=== PATIENT | male | born 1985 | race Caucasian/White ===

== ENCOUNTER 2016-11-27 19:58 | Emergency (ER) | END 2016-11-27 21:50 | disposition home or self-care (01) | DX: S61.215A Laceration without foreign body of left ring finger without damage to nail, initial encounter (principal); W26.8XXA Contact with other sharp object(s), not elsewhere classified, initial encounter; Y92.9 Unspecified place or not applicable; Z23 Encounter for immunization | CPT/HCPCS: 12001; 90471; 90715; Z7502; Z7610 ==

== ENCOUNTER 2016-11-29 18:09 | Emergency (ER) | payer MEDICAID ==
[~2016-11-29] VITALS: Ht 177.8 cm; Wt 67.0 kg
[~2016-11-29 18:09] MED LIST: ACET500C5 PO; CEPH-443 PO; IBUP-1542 PO
[2016-11-29 18:16] VITALS: Ht 177.8 cm; Wt 67.0 kg
--- NOTE | 2016-11-29 19:06 | ERD ---
ER Documentation Chief Complaint Date/Time DATE: 11/29/16 TIME: 19:03 Chief Complaint LEFT HAND INDEX FINGER WOUND RECHECK X2 HPI 31-year-old male presents to emergency department with a left index finger laceration wound check, patient was seen here 2 days ago was sutured, patient denies any new symptoms, pain is controlled at this time. Patient denies any opening of the wound. Patient denies any discharge from the wound. Patient denies any numbness or tingling. Patient denies any fever or chills. ROS All systems reviewed and are negative except as per history of present illness. Medications Home Meds Active Scripts Acetaminophen* (Tylophen*) 500 Mg Capsule, 1 CAP PO Q6H Y for PAIN AND OR ELEVATED TEMP, #30 CAP Prov:KENNETH MAJOR PA-C 11/27/16 Ibuprofen* (Motrin*) 600 Mg Tab, 600 MG PO Q6, #30 TAB Prov:KENNETH MAJOR PA-C 11/27/16 Cephalexin* (Keflex*) 500 Mg Capsule, 500 MG PO QID for 7 Days, CAP Prov:KENNETH MAJOR PA-C 11/27/16 Allergies Allergies: Coded Allergies: No Known Drug Allergies (Verified Allergy, Unknown, 11/27/16) PMhx/Soc Medical and Surgical Hx: pt denies Medical Hx, pt denies Surgical Hx History of Surgery: No Anesthesia Reaction: No Hx Neurological Disorder: No Hx Respiratory Disorders: No Hx Cardiac Disorders: No Hx Psychiatric Problems: No Hx Miscellaneous Medical Probl: No Hx Alcohol Use: Yes (social) Hx Substance Use: No Hx Tobacco Use: No FmHx Family History: No coronary disease, No diabetes, No other Physical Exam Vitals Vital Signs Date Time Temp Pulse Resp B/P Pulse Ox O2 Delivery O2 Flow Rate FiO2 11/29/16 18:16 98.2 66 18 119/69 98 Physical Exam GENERAL: The patient is well developed and appropriate for usual state of health, in no apparent distress. CHEST: Clear to auscultation bilaterally. There are no rales, wheezes or rhonchi. HEART: Regular rate and rhythm. No murmurs, clicks, rubs or gallops. No S3 or S4. ABDOMEN: Soft, nontender and nondistended. Good bowel sounds. No rebound or guarding. No gross peritonitis. No gross organomegaly or masses. No Mo sign or McBurney point tenderness. BACK: No midline or flank tenderness. EXTREMITIES: Equal pulses bilaterally. There is no peripheral clubbing, cyanosis or edema. No focal swelling or erythema. Full range of motion. Grossly neurovascularly intact. NEURO: Alert and oriented. Cranial nerves 2-12 intact. Motor strength in all 4 extremities with 5/5 strength. Sensation grossly intact. Normal speech and gait. SKIN: Noted for sutures in place, wound is healing well, no symptoms of any infection, no redness or swelling, no purulent discharge. There is no apparent ecchymosis or petechia. The skin is warm and dry. HEMATOLOGIC AND LYMPHATIC: There is no evidence of excessive bruising or lymphedema. No gross cervical, axillary, or inguinal lymphadenopathy. Procedures/MDM Medical decision making: Patient is here for a wound check, the wound is healing well, no symptoms of any infection. No gaping of the wound. No symptoms of neurovascular compromise. Patient was given prescription 2 days ago for Keflex ibuprofen and Tylenol, was advised to continue taking it. Patient was advised to return in 7-10 days for removal of the sutures. Patient was advised to return sooner for any worsening symptoms Disposition: Home. Stable Departure Diagnosis: Primary Impression: Finger laceration Encounter type: initial encounter Qualified Code: S61.219A - Finger laceration, initial encounter Additional Impression: Encounter for wound re-check Condition: Stable Patient Instructions: Wound Check, Lac F/U (No Infection) NISHA LINARES NP Nov 29, 2016 19:06
== END 2016-11-29 20:18 | disposition home or self-care (01) ==
LOC: FTE 18:09
DX: S61.211D Laceration without foreign body of left index finger without damage to nail, subsequent encounter (principal); X58.XXXD Exposure to other specified factors, subsequent encounter; Z48.01 Encounter for change or removal of surgical wound dressing
CPT/HCPCS: 99281